=== PATIENT | female | born 1990 | race African-American/Black ===

== ENCOUNTER 2020-06-08 13:40 | Emergency (ER) | payer BC ==
[~2020-06-08] VITALS: Ht 162.6 cm; Wt 54.1 kg
[2020-06-08 13:53] VITALS: TEMP 98.2
[2020-06-08 14:17] LABS: BASO # 0.1 (0.0-0.2); BASO % 0.6 % (0.0-2.0); EOS # 0.1 (0.0-0.7); EOS % 1.2 % (0-4.0); GRAN # 5.3 (1.4-6.5); GRAN % 64.9 % (42.2-75.2); HEMOGLOBIN 11.7 g/dl (12.5-16.0); LYMPH # 2.1 (1.2-3.4); LYMPH % 25.6 % (20.0-51.0); MEAN CELL VOLUME 88 fl (80.0-100.0); MEAN CORPUSCULAR HEMOGLOBIN 28 pg (27.0-31.0); MEAN CORPUSCULAR HGB CONC 32 g/dl (33.0-37.0); MEAN PLATELET VOLUME 11.7 fl (7.4-10.4); MONO # 0.6 (0.1-0.6); MONO % 7.5 % (1.7-9.3); PLATELET COUNT 252 K/mm3 (130-400); RED BLOOD COUNT 4.15 M/mm3 (4.10-5.30); REDCELL DISTRIBUTION WIDTH-CV 13.8 % (11.5-14.5)
[2020-06-08 14:18] LABS: HEMATOCRIT 36.5 % (37.0-47.0)
[2020-06-08 14:25] LABS: COLLECTION METHOD CLEAN CATCH
[2020-06-08 14:28] LABS: ALBUMIN 4.2 gm/dL (3.5-5.0); BILIRUBIN,TOTAL 0.4 mg/dL (0.0-1.0); C-REACTIVE PROTEIN 0.6 mg/dL (0.0-0.9); CALCIUM 8.8 mg/dL (8.4-10.2); CREATININE, serum 0.72 (0.52-1.25); TOTAL PROTEIN 7.2 gm/dL (6.4-8.2)
[2020-06-08 14:32] LABS: MUCOUS Present /lpf; PH 6 (5-8); SQUAMOUS EPITHELIAL 0-2 /hpf; URINE APPEARANCE Clear; URINE BACTERIA None Seen /hpf; URINE BILIRUBIN Negative (NEGATIVE); URINE BLOOD 2+ (NEGATIVE); URINE COLOR Yellow; URINE GLUCOSE Negative (NEGATIVE); URINE KETONE Negative (NEGATIVE); URINE LEUKOCYTE ESTERASE Negative (NEGATIVE); URINE NITRATE Negative (NEGATIVE); URINE PROTEIN(semi-quant) Negative (NEGATIVE)
[2020-06-08] MEDS ORDERED: GOOD SENSE SLEE25 M1 PO (15:19)
[2020-06-08] MEDS ORDERED: NORCO 325 MG-51 TAB PO (16:14)
[2020-06-08] MEDS ORDERED: ZOFRAN ODT4 MG PO (16:34)
[2020-06-08 16:37] VITALS: BP 131/88; PULSE 94
== END 2020-06-08 16:38 ==
LOC: COL.ER 13:40
PROVIDERS: Physician Assistant
DX: N13.30 Unspecified hydronephrosis (principal); K76.9 Liver disease, unspecified; Z32.02 Encounter for pregnancy test, result negative
CPT/HCPCS: J1170; J1885; J2270; J2405; J7030; Q9967